=== PATIENT | female | born 1985 | race American Indian/Alaskan Native ===

== ENCOUNTER 2018-03-30 18:32 | Emergency (ER) | payer OTHER ==
[2018-03-30 18:50] VITALS: TEMP 99
--- NOTE | 2018-03-30 19:18 | ED PDOC ---
Arrival/HPI - General Chief Complaint: Female Genitourinary Time Seen by Provider: 03/30/18 18:44 Historian: Patient EM Caveat: Acuity of Condition - History of Present Illness Narrative History of Present Illness (Text): 03/30/18 19:14 Pt is a 32 yr old female , ~6weeks GA by LMP, who presents tot the ER for vaginal spotting x 1 day. Pt states she first went to [facility] who confirmed the pos hCG along with other labs. Pt was sent here for follow up ultrasound. Denies fever, chills, cramping, trauma, recent drug or alcohol use, nausea, vomiting, diarrhea, or any other complaint. Time/Duration: 4-6 hours Symptom Onset: Sudden Symptom Course: Unchanged Quality: Aching, Pressure Severity Level: 1 Activities at Onset: Rest, Light Past Medical History - Provider Review Nursing Documentation Reviewed: Yes - Travel History Have you recently traveled outside [place] w/in the past 3 mons?: No - Psychiatric Hx Substance Use: No Family/Social History - Physician Review Nursing Documentation Reviewed: Yes Family/Social History: Unknown Family HX Smoking Status: Never Smoked Hx Alcohol Use: Yes Frequency of alcohol use: Socially Hx Substance Use: No Allergies/Home Meds Allergies/Adverse Reactions: Allergies No Known Allergies Allergy (Verified 03/30/18 18:43) Home Medications: Home Meds Medication Instructions Recorded Confirmed No Known Home Med 03/30/18 03/30/18 Review of Systems - Review of Systems Systems not reviewed;Unavailable: Acuity of Condition Constitutional: Normal. absent: Fatigue, Weight Change, Fevers Eyes: Normal. absent: Vision Changes ENT: Normal. absent: Hearing Changes Respiratory: Normal. absent: SOB, Cough Cardiovascular: Normal. absent: Chest Pain Gastrointestinal: Normal. absent: Abdominal Pain Genitourinary Female: Normal. absent: Dysuria, Frequency, Hematuria, Vaginal Bleeding, Vaginal Discharge Musculoskeletal: Normal. absent: Arthralgias, Back Pain Skin: Normal. absent: Rash Neurological: Normal. absent: Headache Endocrine: Normal. absent: Diaphoresis Hemo/Lymphatic: Normal. absent: Adenopathy Psychiatric: Normal Physical Exam Vital Signs Reviewed: Yes Vital Signs Temp Pulse Resp BP Pulse Ox 03/30/18 21:21 76 18 129/86 98 03/30/18 18:43 99.0 F 79 17 115/77 99 Temperature: Afebrile Blood Pressure: Normal Pulse: Regular Respiratory Rate: Normal Appearance: Positive for: Well-Appearing, Non-Toxic, Comfortable Pain Distress: None Mental Status: Positive for: Alert and Oriented X 3 - Systems Exam Head: Present: Atraumatic, Normocephalic Pupils: Present: PERRL Extroacular Muscles: Present: EOMI Conjunctiva: Present: Normal Mouth: Present: Moist Mucous Membranes Neck: Present: Normal Range of Motion Respiratory/Chest: Present: Clear to Auscultation, Good Air Exchange. No: Respiratory Distress, Accessory Muscle Use Cardiovascular: Present: Regular Rate and Rhythm, Normal S1, S2. No: Murmurs Abdomen: Present: Normal Bowel Sounds. No: Tenderness, Distention, Peritoneal Signs, Rebound, Guarding, McBurney's Point Tender, Rovsing's Sign Present Genitourinary/Pelvic Exam: Present: Normal External Genitalia, Vaginal Bleeding (spotting). No: Vaginal Discharge, Adenexal Mass Back: Present: Normal Inspection Upper Extremity: Present: Normal Inspection, Normal ROM, NORMAL PULSES. No: Cyanosis, Edema Lower Extremity: Present: Normal Inspection. No: Edema Neurological: Present: GCS=15, CN II-XII Intact, Speech Normal Skin: Present: Warm, Dry, Normal Color. No: Rashes Psychiatric: Present: Alert, Oriented x 3, Normal Insight, Normal Concentration Medical Decision Making ED Course and Treatment: 03/30/18 19:31 Impression Pt is a 32 yr old female , ~6weeks GA by LMP, who presents tot the ER for vaginal spotting x 1 day On exam, no vaginal bleeding and no other findings Working dx: threatened miscarriage vs spontaneous vs frist trimester spotting Plan beta hCG T&S transvaginal US Progress note beta hCG still pending Transvaginal US IMPRESSION: There is a single intrauterine noted , yolk sac is noted. The gestational sac is slightly ? in the mid to lower uterine segment. The pole is noted. No heart beat is noted. Ultrasound age is 5 weeks and 2 days. Serial beta-hCG and followup ultrasound is advised Discussed findings with pt and spouse; need to f/u with recommended OB in [place], Dr Hortensia Friedman in 2 days for serial hcg levels pt pain free and hemodynamically stable, no active bleeding on discharge - Lab Interpretations Lab Results: Lab Results 03/30/18 20:27: Blood Type O POSITIVE, Antibody Screen Negative, BBK History Checked No verified bt 03/30/18 20:27: Beta HCG, Quant [id number] H I have reviewed the lab results: Yes (Beta hCG [id number]) - RAD Interpretation Narrative RAD Interpretations (Text): 03/30/18 20:46 EXAM: US , Transvaginal CLINICAL HISTORY: 32 years old, female; Pain; complicated by abdominal or pelvic pain; Lower; First trimester; Gestational age or lmp: 02-17-18; ; Additional info: Spotting in first trimester TECHNIQUE: Real-time transvaginal obstetrical ultrasound of the maternal pelvis and a first trimester with image documentation. Transvaginal imaging was used for better evaluation of the fetus and adnexa. COMPARISON: No relevant prior studies available. FINDINGS: Gestation: There is a single intrauterine noted , yolk sac is noted. The gestational sac is slightly ? in the mid to lower uterine segment. The pole is noted. No heart beat is noted. Ultrasound age is 5 weeks and 2 days. Serial beta-hCG and followup ultrasound is advised. Uterus/cervix: ? fundal myoma Ovaries: Unremarkable. No mass. Free fluid: No free fluid. IMPRESSION: There is a single intrauterine noted , yolk sac is noted. The gestational sac is slightly ? in the mid to lower uterine segment. The pole is noted. No heart beat is noted. Ultrasound age is 5 weeks and 2 days. Serial beta-hCG and followup ultrasound is advised Radiology Orders: 03/30/18 19:19 OB TRANSVAGINAL [US] Stat Disposition/Present on Arrival - Present on Arrival Any Indicators Present on Arrival: Yes History of DVT/PE: No History of Uncontrolled Diabetes: No Urinary Catheter: No History of Decub. Ulcer: No History Surgical Site Infection Following: None - Disposition Have Diagnosis and Disposition been Completed?: Yes Diagnosis: Uterine myoma, , first, Vaginal bleeding in patient at less than 20 weeks gestation Disposition: HOME/ ROUTINE Disposition Time: 21:02 Patient Plan: Discharge Condition: GOOD Discharge Instructions (ExitCare): Uterine Fibroids (DC), Bleeding With (DC), - The First Month Additional Instructions: BRANDY DORMAN, thank you for letting us take care of you today. Your provider was Aditya Elliott MD and JAYNA Gutierrez and you were assessed for Vaginal Spotting During First Trimester of . The emergency medical care you received today was directed at your acute symptoms. If you were prescribed any medication, please fill it and take as directed. It may take several days for your symptoms to resolve. Return to the Emergency Department if your symptoms worsen, do not improve, or if you have any other problems. PLEASE CONTACT THE RECOMMENDED [facility] IN [place] FOR FOLLOW UP CARE IN THE NEXT FEW DAYS. YOU WILL NEED TO HAVE ANOTHER ULTRASOUND DONE ALONG WITH SERUM HCG LEVELS ASCERTAINED IF YOU EXPERIENCE SUDDEN INCREASE IN VAGINAL BLEEDING ALONG WITH CRAMPING, GO TO YOUR NEAREST EMERGENCY ROOM FOR EVALUATION Please contact your doctor or call one of the physicians/clinics you have been referred to that are listed on the Patient Visit Information form that is included in your discharge packet. Bring any paperwork you were given at discharge with you along with any medications you are taking to your follow up visit. Our treatment cannot replace ongoing medical care by a primary care provider outside of the emergency department. Thank you for allowing the [facility] team to be part of your care today. If you had an X-Ray or CT scan: A Radiologist will review the ED reading if any change in treatment is needed we will contact you. If you had a blood, urine, or wound culture: It will take several days for the results, if any change in treatment is needed we will contact you. Referrals: Manju Friedman MD [Medical Doctor] - Follow up with primary Forms: [employer] ([place])
[2018-03-30 21:22] VITALS: BP 129/86; PULSE 76; RESP 18; O2SAT 98
--- NOTE | 2018-03-31 08:34 | US ---
PROCEDURE: First trimester ultrasound HISTORY: First trimester spotting COMPARISON: None available. TECHNIQUE: Standard protocol for this study/examination. FINDINGS: LMP: 02/13/2018 Prior examinations from the current : None TECHNIQUE: Real-time 2D imaging, duplex and color Doppler. FINDINGS: Cardiac activity: ABSENT Measurements: [place] rump length: 0.17 cm Gestational age based on CRL Below the threshold for calculation of a reliable gestational age Gestational age 5 weeks 2 days based on gestational sac measurement 1.22 cm Gestational age derived from LMP: 5 weeks 6 days SHIN based on LMP: 11/24/2018 SHIN based on biometry: 11/28/2018 Gestational concordance apparent Yolk sac identified Uterus: Unremarkable. Cervix: No Cervical abnormalities: Negative examination for cervical dilatation or effacement. Closed cervix measuring 3.19 cm Subchorionic hemorrhage: None UTERUS: 5.7 x 5.9 x 8.9 cm. Location of fibroid and size: Fundal 2.4 x 2.5 cm ADNEXA: Right: 1.1 x 2.0 cm. Normal Doppler arterial waveform documented. Left: 0.7 x 2.1 cm. Normal Doppler arterial waveform documented Fluid in the cul-de-sac: None IMPRESSION: Well-formed gestational sac and yolk sac identified. Small pole identified. Cardiac activity not apparent on the current study. This may be related to early intrauterine gestation. Follow-up advised including serial beta HCG and repeat ultrasound if clinically appropriate. Concordant results (preliminary interpretation) provided by [facility]. Procedure Completed: 19:53 Preliminary ([facility]) Report: Dictated and Authenticated: 20:38 Final Interpretation: 08:32 March 31, 2018.
== END 2018-03-30 21:21 | disposition home or self-care (01) ==
LOC: ED 18:32
DX: O34.11 Maternal care for benign tumor of corpus uteri, first trimester (principal); D25.9 Leiomyoma of uterus, unspecified; Z3A.01 Less than 8 weeks gestation of pregnancy; O20.9 Hemorrhage in early pregnancy, unspecified